=== PATIENT | male | born 1995 | race American Indian/Alaskan Native ===

== ENCOUNTER 2017-08-16 17:35 | Emergency (ER) | payer SELFPAY ==
[2017-08-16 17:47] VITALS: BP 151/86
[2017-08-16] MEDS ORDERED: PERCOCET 5/325 PO ONE (21:34)
--- NOTE | 2017-08-16 21:38 | Emergency Department Report ---
- General Chief complaint: Skin/Abscess/Foreign Body Stated complaint: CHRONIC LEG PAIN Time Seen by Provider: 08/16/17 21:34 Source: patient Mode of arrival: Ambulatory Limitations: No Limitations - History of Present Illness Initial comments: 22-year-old -[place] male comes in complaint of a lump in his buttock. Patient reports that it started 3 days ago. 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 Patient reports his has been putting toilet paper between his gluteal cleft tubes were the discharge. Patient reports his pain is 8 out of 10. Currently takes no medication on a daily basis has no known drug allergies. Patient reports his status is negative for HIV. MD complaint: abscess/boil -: days(s) (3) Tetanus Up to Date: no Location: buttocks Severity: severe Severity scale (0 -10): 8 Quality: burning, constant Consistency: constant Improves with: none Worsens with: movement, other (warm compresses) Associated symptoms: denies other symptoms - Related Data Home Medications Medication Instructions Recorded Confirmed Last Taken Albuterol Sulfate [Albuterol 0.63%] 0.63 mg IH TID PRN 11/07/13 11/07/13 Previous Rx's Medication Instructions Recorded Last Taken Type ALBUTEROL Inhaler [ProAir HFA 2 puff IH QID PRN #1 inhalation 11/07/13 Unknown Rx Inhaler] Prednisone [predniSONE 10 mg 10 mg PO .TAPER #1 tab.ds.pk 05/12/15 Unknown Rx (6-Day Pack, 21 Tabs)] Cephalexin [Keflex] 500 mg PO BID 10 Days #20 capsule 08/16/17 Unknown Rx Ibuprofen 600 mg PO Q8H PRN #30 tablet 08/16/17 Unknown Rx Allergies Allergy/AdvReac Type Severity Reaction Status Date / Time No Known Allergies Allergy Verified 08/16/17 17:43 Abscess Boil HPI - HPI Chief Complaint: Skin/Abscess/Foreign Body Stated Complaint: CHRONIC LEG PAIN Time Seen by Provider: 08/16/17 21:34 Home Medications: Home Medications Medication Instructions Recorded Confirmed Last Taken Albuterol Sulfate [Albuterol 0.63%] 0.63 mg IH TID PRN 11/07/13 11/07/13 14 Previous Rx's Medication Instructions Recorded Last Taken Type ALBUTEROL Inhaler [ProAir HFA 2 puff IH QID PRN #1 inhalation 11/07/13 Unknown Rx Inhaler] Prednisone [predniSONE 10 mg 10 mg PO .TAPER #1 tab.ds.pk 05/12/15 Unknown Rx (6-Day Pack, 21 Tabs)] Cephalexin [Keflex] 500 mg PO BID 10 Days #20 capsule 08/16/17 Unknown Rx Ibuprofen 600 mg PO Q8H PRN #30 tablet 08/16/17 Unknown Rx Allergies/Adverse Reactions: Allergies Allergy/AdvReac Type Severity Reaction Status Date / Time No Known Allergies Allergy Verified 08/16/17 17:43 ED Review of Systems ROS: Stated complaint: CHRONIC LEG PAIN Other details as noted in HPI Constitutional: denies: chills, fever Eyes: denies: eye pain, eye discharge, vision change ENT: denies: ear pain, throat pain Respiratory: denies: cough, shortness of breath, wheezing Cardiovascular: denies: chest pain, palpitations Endocrine: no symptoms reported Gastrointestinal: denies: abdominal pain, nausea, diarrhea Genitourinary: denies: urgency, dysuria Musculoskeletal: denies: back pain, joint swelling, arthralgia Skin: lesions (buttocks). denies: rash Neurological: denies: headache, weakness, paresthesias Psychiatric: denies: anxiety, depression Hematological/Lymphatic: denies: easy bleeding, easy bruising ED Past Medical Hx - Past Medical History Hx Asthma: Yes Additional medical history: hsv 2 - Social History Smoking Status: Current Some Day Smoker Substance Use Type: None - Medications Home Medications: Home Medications Medication Instructions Recorded Confirmed Last Taken Type ALBUTEROL Inhaler [ProAir HFA 2 puff IH QID PRN #1 inhalation 11/07/13 Unknown Rx Inhaler] Albuterol Sulfate [Albuterol 0.63%] 0.63 mg IH TID PRN 11/07/13 11/07/13 History Prednisone [predniSONE 10 mg 10 mg PO .TAPER #1 tab.ds.pk 05/12/15 Unknown Rx (6-Day Pack, 21 Tabs)] Cephalexin [Keflex] 500 mg PO BID 10 Days #20 capsule 08/16/17 Unknown Rx Ibuprofen 600 mg PO Q8H PRN #30 tablet 08/16/17 Unknown Rx ED Physical Exam - General Limitations: No Limitations General appearance: alert, in no apparent distress - Head Head exam: Present: atraumatic, normocephalic - Eye Eye exam: Present: normal appearance - ENT ENT exam: Present: mucous membranes moist - Respiratory Respiratory exam: Present: normal lung sounds bilaterally. Absent: respiratory distress - Cardiovascular Cardiovascular Exam: Present: tachycardia - GI/Abdominal GI/Abdominal exam: Present: soft, normal bowel sounds - exam: Absent: testicular tenderness, scrotal swelling External exam: Present: erythema, swelling, lesions, other (purulent discharge) - Extremities Exam Extremities exam: Present: normal inspection - Back Exam Back exam: Present: normal inspection - Neurological Exam Neurological exam: Present: alert, oriented X3 - Psychiatric Psychiatric exam: Present: normal affect, normal mood - Skin Skin exam: Present: warm, dry, intact, normal color. Absent: rash ED Course Vital Signs 08/16/17 17:44 Temperature 98.2 F Pulse Rate 112 H Respiratory 18 Rate Blood Pressure 151/86 O2 Sat by Pulse 98 Oximetry - I & D Perineum Site: left gluteal cleft Blade Size: 11 I & D Procedure: betadine prep, sterile drapes applied, sterile dressing applied Progress: Tolerated well ED Medical Decision Making - Medical Decision Making Patient has been evaluated by this provider fast track. Discussed the patient that we will incision and drain as well as he may have to packet. We would do a wound culture. We will give Percocet for pain management. Discussed patient with placement antibiotics and pain medication. Discussed the patient that if we packet the wound he would need to return in 3 days for wound check and packing removal. Patient verbalized understanding Critical care attestation.: If time is entered above; I have spent that time in minutes in the direct care of this critically ill patient, excluding procedure time. ED Disposition Clinical Impression: Abscess of buttock, left Disposition: DC-01 TO HOME OR SELFCARE Is pt being admited?: No Does the pt Need Aspirin: No Condition: Stable Instructions: Abscess (ED) Additional Instructions: Please complete antibiotics as prescribed. Please take pain medication as needed for pain and discomfort. Please do warm Epsom salt soaks to help the pain and the drainage. Please follow up with her primary care provider I have listed one below. Prescriptions: Cephalexin [Keflex] 500 mg PO BID 10 Days #20 capsule Ibuprofen 600 mg PO Q8H PRN #30 tablet PRN Reason: Pain Referrals: FIDEL MIRELES MD [Primary Care Provider] - 3-5 Days [facility] [Provider Group] - 3-5 Days Forms: Work/School Release Form(ED)
== END 2017-08-16 22:31 | disposition home or self-care (01) ==
LOC: ED 17:35
DX: L02.31 Cutaneous abscess of buttock (principal); J45.909 Unspecified asthma, uncomplicated; F17.200 Nicotine dependence, unspecified, uncomplicated
CPT/HCPCS: 87116; 99282

== ENCOUNTER 2021-10-12 12:07 | Emergency (ER) | payer SELFPAY ==
[2021-10-12 14:01] VITALS: BP 111/78
[2021-10-12] MEDS ORDERED: IBUPROFEN 800 MG TAB PO ONE (15:53)
--- NOTE | 2021-10-12 16:03 | Emergency Department Report ---
ED ENT HPI - General Chief complaint: Dental/Oral Stated complaint: TOOTH PAIN Time Seen by Provider: 10/12/21 14:36 Source: patient Mode of arrival: Ambulatory Limitations: No Limitations - History of Present Illness Initial comments: This is a 26-year-old male nontoxic, well nourished in appearance, no acute signs of distress presents to the ED with c/o of left lower toothache several days. Patient denies following up with a dentist. Patient describes toothache as aching level of 8 out of 10. Patient denies any facial swelling. Patient denies any numbness, tingling, fever, chills, headache, stiff neck, abdominal pain, chest pain, shortness of breath. Patient denies any drug allergies or significant past medical history. MD complaint: tooth pain -: days(s) Location: tooth # 1 - pain here Severity: mild Severity scale (0 -10): 8 Quality: aching Consistency: constant Improves with: none Worsens with: none Context- Dental: history of dental caries, poor dental care Associated Symptoms: gum swelling, toothache. denies: fever, cough, pain with s wallowing, sore throat, tinnitus, hearing loss, discharge from ear, rhinorrhea - Related Data Home Medications Medication Instructions Recorded Confirmed Last Taken Albuterol Sulfate [Albuterol 0.63%] 0.63 mg IH TID PRN 11/07/13 11/07/13 10/06/13 Previous Rx's Medication Instructions Recorded Last Taken Type Albuterol Mdi (or & Nicu Only) 2 puff IH QID PRN #1 inhalation 11/07/13 Unknown Rx [ProAir HFA Inhaler] Prednisone [predniSONE 10 mg 10 mg PO .TAPER #1 tab.ds.pk 05/12/15 Unknown Rx (6-Day Pack, 21 Tabs)] Ibuprofen 600 mg PO Q8H PRN #30 tablet 08/16/17 Unknown Rx cephALEXin [Keflex] 500 mg PO BID 10 Days #20 capsule 08/16/17 Unknown Rx Acetaminophen/Codeine [Tylenol 1 tab PO Q6H PRN #10 tab 01/01/19 Unknown Rx /Codeine # 3 tab] Ibuprofen [Motrin 600 MG tab] 600 mg PO Q8H PRN #20 tablet 01/01/19 Unknown Rx Amoxicillin [Amoxicillin TAB] 875 mg PO BID #20 tab 10/12/21 Unknown Rx Chlorhexidine Mouthwash [Peridex] 15 ml MM BID #1 bottle 10/12/21 Unknown Rx Naproxen 500 mg PO Q12H PRN #12 tab 10/12/21 Unknown Rx Allergies Allergy/AdvReac Type Severity Reaction Status Date / Time No Known Allergies Allergy Verified 08/16/17 17:43 ED Dental HPI - General Chief complaint: Dental/Oral Stated complaint: TOOTH PAIN Time Seen by Provider: 10/12/21 14:36 Source: patient Mode of arrival: Ambulatory Limitations: No Limitations - Related Data Home Medications Medication Instructions Recorded Confirmed Last Taken Albuterol Sulfate [Albuterol 0.63%] 0.63 mg IH TID PRN 11/07/13 11/07/13 10/06/13 Previous Rx's Medication Instructions Recorded Last Taken Type Albuterol Mdi (or & Nicu Only) 2 puff IH QID PRN #1 inhalation 11/07/13 Unknown Rx [ProAir HFA Inhaler] Prednisone [predniSONE 10 mg 10 mg PO .TAPER #1 tab.ds.pk 05/12/15 Unknown Rx (6-Day Pack, 21 Tabs)] Ibuprofen 600 mg PO Q8H PRN #30 tablet 08/16/17 Unknown Rx cephALEXin [Keflex] 500 mg PO BID 10 Days #20 capsule 08/16/17 Unknown Rx Acetaminophen/Codeine [Tylenol 1 tab PO Q6H PRN #10 tab 01/01/19 Unknown Rx /Codeine # 3 tab] Ibuprofen [Motrin 600 MG tab] 600 mg PO Q8H PRN #20 tablet 01/01/19 Unknown Rx Amoxicillin [Amoxicillin TAB] 875 mg PO BID #20 tab 10/12/21 Unknown Rx Chlorhexidine Mouthwash [Peridex] 15 ml MM BID #1 bottle 10/12/21 Unknown Rx Naproxen 500 mg PO Q12H PRN #12 tab 10/12/21 Unknown Rx Allergies Allergy/AdvReac Type Severity Reaction Status Date / Time No Known Allergies Allergy Verified 08/16/17 17:43 ED Review of Systems ROS: Stated complaint: TOOTH PAIN Other details as noted in HPI Comment: All other systems reviewed and negative Constitutional: denies: chills, fever Eyes: denies: eye pain, eye discharge, vision change ENT: dental pain. denies: ear pain, throat pain, hearing loss, epistaxis, congestion Respiratory: denies: cough, shortness of breath, wheezing Cardiovascular: denies: chest pain, palpitations Endocrine: no symptoms reported Gastrointestinal: denies: abdominal pain, nausea, diarrhea Genitourinary: denies: urgency, dysuria Musculoskeletal: denies: back pain, joint swelling, arthralgia Skin: denies: rash, lesions Neurological: denies: headache, weakness, paresthesias Psychiatric: denies: anxiety, depression Hematological/Lymphatic: denies: easy bleeding, easy bruising ED Past Medical Hx - Past Medical History Hx Asthma: Yes Additional medical history: hsv 2 - Surgical History Additional Surgical History: tonsillectomy - Social History Smoking Status: Current Every Day Smoker Substance Use Type: Alcohol, Marijuana - Medications Home Medications: Home Medications Medication Instructions Recorded Confirmed Last Taken Type Albuterol Mdi (or & Nicu Only) 2 puff IH QID PRN #1 inhalation 11/07/13 Unknown Rx [ProAir HFA Inhaler] Albuterol Sulfate [Albuterol 0.63%] 0.63 mg IH TID PRN 11/07/13 11/07/13 10/06/13 History Prednisone [predniSONE 10 mg 10 mg PO .TAPER #1 tab.ds.pk 05/12/15 Unknown Rx (6-Day Pack, 21 Tabs)] Ibuprofen 600 mg PO Q8H PRN #30 tablet 08/16/17 Unknown Rx cephALEXin [Keflex] 500 mg PO BID 10 Days #20 capsule 08/16/17 Unknown Rx Acetaminophen/Codeine [Tylenol 1 tab PO Q6H PRN #10 tab 01/01/19 Unknown Rx /Codeine # 3 tab] Ibuprofen [Motrin 600 MG tab] 600 mg PO Q8H PRN #20 tablet 01/01/19 Unknown Rx Amoxicillin [Amoxicillin TAB] 875 mg PO BID #20 tab 10/12/21 Unknown Rx Chlorhexidine Mouthwash [Peridex] 15 ml MM BID #1 bottle 10/12/21 Unknown Rx Naproxen 500 mg PO Q12H PRN #12 tab 10/12/21 Unknown Rx ED Physical Exam - General Limitations: No Limitations General appearance: alert, in no apparent distress - Head Head exam: Present: atraumatic, normocephalic - Eye Eye exam: Present: normal appearance - Expanded ENT Exam Expanded Mouth exam: Present: normal external inspection. Absent: drooling, trismus, muffled voice Teeth exam: Present: dental caries, fractured tooth #, dental tenderness #, gingival enlargement, other (no facial swelling. no dental abscess) Throat exam: Positive: normal inspection, other (uvula midline). Negative: tonsillar erythema, tonsillomegaly, tonsillar exudate, R peritonsillar mass, L peritonsillar mass - Neck Neck exam: Present: normal inspection, full ROM. Absent: lymphadenopathy - Respiratory Respiratory exam: Absent: respiratory distress - Cardiovascular Cardiovascular Exam: Present: regular rate - Extremities Exam Extremities exam: Present: full ROM - Back Exam Back exam: Present: full ROM - Neurological Exam Neurological exam: Present: alert, oriented X3, normal gait - Psychiatric Psychiatric exam: Present: normal affect, normal mood - Skin Skin exam: Present: warm, dry, intact, normal color. Absent: rash ED Course Vital Signs 10/12/21 10/12/21 13:58 15:57 Temperature 98.5 F Pulse Rate 79 Respiratory 18 18 Rate Blood Pressure 111/78 [Right] O2 Sat by Pulse 99 Oximetry - Reevaluation(s) Reevaluation #1: 10/12/21 16:01 Patient is speaking in full sentences with no signs of distress noted. ED Medical Decision Making - Medical Decision Making This is a 26-year-old male that presents with gingivitis and dental caries. Patient is stable and was examined by me. Exam does not show any dental abscess. Patient will be discharged with amoxicillin. Patient was instructed to follow-up with a dentist doctor in 3-5 days or if symptoms worsen and continue return to emergency room as soon as possible. At time of discharge, the patient does not seem toxic or ill in appearance. No acute signs of distress noted. Patient agrees to discharge treatment plan of care. No further questions noted by the patient. Critical care attestation.: If time is entered above; I have spent that time in minutes in the direct care of this critically ill patient, excluding procedure time. ED Disposition Clinical Impression: Dental caries, Gingivitis Disposition: HOME / SELF CARE / HOMELESS Is pt being admited?: No Does the pt Need Aspirin: No Condition: Stable Additional Instructions: Follow-up with a dentist doctor in 3-5 days or if symptoms worsen and continue return to emergency room as soon as possible. Prescriptions: Amoxicillin [Amoxicillin TAB] 875 mg PO BID #20 tab Naproxen 500 mg PO Q12H PRN #12 tab PRN Reason: Pain , Severe (7-10) Chlorhexidine Mouthwash [Peridex] 15 ml MM BID #1 bottle Referrals: PRIMARY CARE, [Referring] - 3-5 Days [facility] [Outside] - 3-5 Days [facility] [Outside] - 3-5 Days Time of Disposition: 16:03
== END 2021-10-12 16:46 | disposition home or self-care (01) ==
LOC: ED 12:07
DX: K02.9 Dental caries, unspecified (principal); K05.10 Chronic gingivitis, plaque induced; F17.200 Nicotine dependence, unspecified, uncomplicated; F12.90 Cannabis use, unspecified, uncomplicated; F10.20 Alcohol dependence, uncomplicated; J45.909 Unspecified asthma, uncomplicated
CPT/HCPCS: 99282

== ENCOUNTER 2022-01-08 12:06 | Emergency (ER) | payer SELFPAY ==
[2022-01-08 12:15] VITALS: BP 124/82
== END 2022-01-08 19:00 | disposition left against medical advice (07) ==
LOC: ED 12:06
DX: U07.1 COVID-19 (principal); Z53.21 Procedure and treatment not carried out due to patient leaving prior to being seen by health care provider